=== PATIENT | female | born 1935 | race Caucasian/White ===

== ENCOUNTER 2019-08-25 07:23 | Inpatient (IN) ==
[2019-08-25] MEDS ORDERED: Albuterol 2.5 MG/3 ML NEBULIZER IH ONE (07:39)
[2019-08-25 07:51] LABS: Basophils % 0.2 %; Eosinophils # 0.1 K/mcL (0.0-0.6); Eosinophils % 0.5 %; Hematocrit 31.7 % (35.3-44.9); Immature Granulocytes % 0.5 % (0-4); Lymphocytes # 0.8 K/mcL (0.6-4.6); Lymphocytes % 5.7 %; Mean Corpuscular HGB Conc 31.5 g/dL (31.6-35.5); Mean Corpuscular Hemoglobin 24.4 pg (28.0-33.3); Mean Corpuscular Volume 77.3 fL (83.0-100.0); Mean Platelet Volume 9.2 fL (9.4-12.4); Monocytes # 0.8 K/mcL (0.0-1.3); Neutrophils # 11.4 K/mcL (1.6-8.9); Platelet Count 318 K/mcL (140-400); Red Cell Distribution Width 14.9 % (11.5-14.5); Segmented Neutrophils % 87.1 %; White Blood Count 13.1 K/mcL (4.3-11.1)
[2019-08-25 07:59] LABS: INR 1.1; Prothrombin Time 12.3 Seconds (9.4-12.1)
[2019-08-25] MEDS ORDERED: Isovue-370 500 ML BOTTLE IVP ONE (08:00)
[2019-08-25 08:11] LABS: Troponin I < 0.03 ng/mL (< 0.04)
[2019-08-25 08:12] LABS: Alanine Aminotransferase 12 Units/L (7-52); Albumin 3.7 g/dL (3.5-5.7); Albumin/Globulin Ratio 1.8 (1.1-2.2); Alkaline Phosphatase 46 Units/L (34-104); Aspartate Amino Transferase 17 Units/L (13-39); BUN/Creatinine Ratio 11 (6-26); Bilirubin,Direct 0.1 mg/dL (0.0-0.2); Bilirubin,Indirect 0.5 mg/dL (0.0-1.0); Bilirubin,Total 0.6 mg/dL (0.3-1.0); Blood Urea Nitrogen 17 mg/dL (8-23); Calcium 8.8 mg/dL (8.6-10.3); Carbon Dioxide 25 mEq/L (23-29); Chloride 92 mEq/L (98-107); Globulin 2.1 g/dL (2.4-3.5); Glucose 125 mg/dL (70-105); Osmolality,Calculated 269 (280-300); Potassium 3.7 mEq/L (3.5-5.1); Sodium 128 mEq/L (136-145); Total Protein 5.8 g/dL (6.4-8.9); eGFR For African Americans 39 (> 60); eGFR For Non-African Americans 32 (> 60)
[2019-08-25 08:25] LABS: ABG Base Excess 2 mEq/L (-2 to 3); ABG HCO3 25 mEq/L (21-27); ABG Oxygen Saturation 91 % (95-98); ABG PCO2 36 mmHg (35-45); ABG PH 7.45 pH Units (7.32-7.45); ABG PO2 58 mmHg (85-104); ABG TCO2 26 mEq/L (20-26)
[2019-08-25] MEDS ORDERED: levoFLOXacin 500 MG/100 ML 500 MG/100 ML BAG IVPB ONE (09:08)
[2019-08-25] MEDS ORDERED: Ondansetron 4 MG/2 ML VIAL IVP ONE (10:38)
[2019-08-25] MEDS ORDERED: Acetaminophen 325 MG TABLET PO PRN (12:55)
[2019-08-25] MEDS ORDERED: Naloxone 0.4 MG/ML INJ IVP PRN (12:55)
[2019-08-25] MEDS ORDERED: Mag Hydrox/Al Hydrox/Simeth 30 ML UDC PO PRN (12:55)
[2019-08-25] MEDS ORDERED: Ondansetron ODT 4 MG TAB.RAPDIS SL PRN (12:55)
[2019-08-25] MEDS ORDERED: Ondansetron 4 MG/2 ML VIAL IVP PRN (12:55)
[2019-08-25] MEDS ORDERED: MOM Conc 10 ML UD.LIQ PO PRN (12:55)
[2019-08-25] MEDS ORDERED: 0.9 % Sodium Chloride 1,000 ML IVC SCH (13:00)
[2019-08-25] MEDS ORDERED: GuaiFENesin Liq 200 MG/10 ML UDC PO PRN (13:23)
[2019-08-25] MEDS ORDERED: *HR* Acetaminophen w/Cod 300-30 mg 1 TAB TABLET PO PRN (13:23)
[2019-08-25] MEDS: 0.9 % Sodium Chloride 1,000 ML IVC SCH (14:07)
[2019-08-25] MEDS: Cholecalciferol (D-3) 1,000 UNIT (25MCG) TABLET PO SCH (14:08)
[2019-08-25] MEDS: Divalproex Sodium 125 MG CAPSULE PO SCH ×3 (15:59→21:00)
[2019-08-25] MEDS: Piperacillin/Tazobactam 3.375 GM in 0.9 % Sodium Chloride Mini Bag 100 ML IVPB SCH ×2 (16:08→23:25)
[2019-08-25] MEDS ORDERED: haloperidoL 1 MG TABLET PO PRN (16:35)
[2019-08-25] MEDS: Ipratropium/Albuterol Neb 3 ML IH SCH ×2 (16:50→21:32)
[2019-08-25] MEDS: Melatonin 3 MG TABLET PO SCH (20:53)
[2019-08-25] MEDS: Sucralfate 1 GM TABLET PO SCH (20:54)
[2019-08-26] MEDS: 0.9 % Sodium Chloride 1,000 ML IVC SCH (04:09)
[2019-08-26] MEDS: Ipratropium/Albuterol Neb 3 ML IH SCH ×4 (04:10→23:09)
[2019-08-26] MEDS: *HR* Enoxaparin 30 MG/0.3 ML SYRINGE SQ SCH (04:10)
[2019-08-26 06:31] LABS: Albumin 3.1 g/dL (3.5-5.7); Albumin/Globulin Ratio 1.7 (1.1-2.2); Bilirubin,Total 0.4 mg/dL (0.3-1.0); Calcium 8.2 mg/dL (8.6-10.3); Globulin 1.8 g/dL (2.4-3.5); Magnesium 1.9 mg/dL (1.6-2.6); Phosphorous 3.8 mg/dL (2.7-4.5); Potassium 3.8 mEq/L (3.5-5.1); Total Protein 4.9 g/dL (6.4-8.9)
[2019-08-26 07:03] LABS: Thyroid Stimulating Hormone 1.916 mcIU/mL (0.340-5.600)
[2019-08-26 07:28] LABS: Hematocrit 26.3 % (35.3-44.9); Mean Corpuscular HGB Conc 31.2 g/dL (31.6-35.5); Mean Corpuscular Hemoglobin 24.3 pg (28.0-33.3); Mean Corpuscular Volume 77.8 fL (83.0-100.0); Mean Platelet Volume 9.3 fL (9.4-12.4); Platelet Count 198 K/mcL (140-400); Red Blood Count 3.38 M/mcL (3.82-4.97); White Blood Count 12.3 K/mcL (4.3-11.1)
[2019-08-26 07:36] LABS: Hemoglobin 8.2 g/dL (11.5-15.4)
[2019-08-26] MEDS: Piperacillin/Tazobactam 3.375 GM in 0.9 % Sodium Chloride Mini Bag 100 ML IVPB SCH ×2 (09:24→16:35)
[2019-08-26] MEDS: Iron Polysaccharide Complex 150 MG CAPSULE PO SCH (09:25)
[2019-08-26] MEDS: Sucralfate 1 GM TABLET PO SCH ×2 (09:25→22:12)
[2019-08-26] MEDS: Aspirin Enteric Coated 81 MG Tablet PO SCH (09:25)
[2019-08-26] MEDS: Mirtazapine 15 MG TABLET PO SCH (09:25)
[2019-08-26] MEDS: Loratadine 10 MG TABLET PO SCH (09:26)
[2019-08-26] MEDS: amLODIPine 5 MG TABLET PO SCH (09:26)
[2019-08-26] MEDS: Divalproex Sodium 125 MG CAPSULE PO SCH ×4 (09:29→22:12)
[2019-08-26] MEDS: Cholecalciferol (D-3) 1,000 UNIT (25MCG) TABLET PO SCH (09:29)
[2019-08-26 10:07] LABS: Adenovirus Not Detected (Not Detect); Coronavirus 229E Not Detected (Not Detect); Coronavirus HKU1 Not Detected (Not Detect); Coronavirus NL63 Not Detected (Not Detect); Coronavirus OC43 Not Detected (Not Detect); Human Metapneumovirus Not Detected (Not Detect); Human Rhinovirus/Enterovirus Not Detected (Not Detect); Influenza A Subtype 2009 H1 Not Detected (Not Detect)
[2019-08-26 10:08] LABS: Bordetella Pertussis Not Detected (Not Detect); Chlamydophila pneumoniae Not Detected (Not Detect); Influenza B Not Detected (Not Detect); Mycoplasma pneumoniae Not Detected (Not Detect); Parainfluenza Virus 1 Not Detected (Not Detect); Parainfluenza Virus 2 Not Detected (Not Detect); Parainfluenza Virus 3 Not Detected (Not Detect); Parainfluenza Virus 4 Not Detected (Not Detect); Respiratory Syncytial Virus Not Detected (Not Detect)
[2019-08-26] MEDS: Ascorbic Acid 500 MG TABLET PO SCH (16:35)
[2019-08-26] MEDS: haloperidoL 1 MG TABLET PO PRN (22:13)
[2019-08-26] MEDS: Melatonin 3 MG TABLET PO SCH (22:13)
[2019-08-27] MEDS: Piperacillin/Tazobactam 3.375 GM in 0.9 % Sodium Chloride Mini Bag 100 ML IVPB SCH ×3 (00:10→16:31)
[2019-08-27] MEDS: Ipratropium/Albuterol Neb 3 ML IH SCH ×4 (04:10→22:28)
[2019-08-27 05:15] LABS: Hematocrit 24.8 % (35.3-44.9); Hemoglobin 7.7 g/dL (11.5-15.4); Mean Corpuscular Hemoglobin 24.2 pg (28.0-33.3); Mean Platelet Volume 9.2 fL (9.4-12.4); Platelet Count 211 K/mcL (140-400); Red Blood Count 3.18 M/mcL (3.82-4.97); White Blood Count 10.2 K/mcL (4.3-11.1)
[2019-08-27 05:35] LABS: BUN/Creatinine Ratio 17 (6-26); Blood Urea Nitrogen 17 mg/dL (8-23); Calcium 8.5 mg/dL (8.6-10.3); Carbon Dioxide 25 mEq/L (23-29); Chloride 101 mEq/L (98-107); Glucose 135 mg/dL (70-105); Magnesium 2.1 mg/dL (1.6-2.6); Osmolality,Calculated 284 (280-300); Potassium 3.8 mEq/L (3.5-5.1); Sodium 135 mEq/L (136-145); eGFR For African Americans > 60 (> 60); eGFR For Non-African Americans 51 (> 60)
[2019-08-27] MEDS: *HR* Enoxaparin 30 MG/0.3 ML SYRINGE SQ SCH (06:25)
[2019-08-27] MEDS: Divalproex Sodium 125 MG CAPSULE PO SCH ×4 (08:16→22:06)
[2019-08-27] MEDS: amLODIPine 5 MG TABLET PO SCH (08:16)
[2019-08-27] MEDS: Aspirin Enteric Coated 81 MG Tablet PO SCH (08:16)
[2019-08-27] MEDS: Sucralfate 1 GM TABLET PO SCH ×2 (08:16→22:06)
[2019-08-27] MEDS: Ascorbic Acid 500 MG TABLET PO SCH ×2 (08:16→16:31)
[2019-08-27] MEDS: Cholecalciferol (D-3) 1,000 UNIT (25MCG) TABLET PO SCH (08:16)
[2019-08-27] MEDS: Mirtazapine 15 MG TABLET PO SCH (08:16)
[2019-08-27] MEDS: Iron Polysaccharide Complex 150 MG CAPSULE PO SCH (08:16)
[2019-08-27 08:35] LABS: % Iron Saturation 3 % (15-50); Iron 11 mcg/dL (50-170); Transferrin 260 mg/dL (203-362)
[2019-08-27 08:47] LABS: Estimated Average Glucose 146 mg/dl
[2019-08-27 08:56] LABS: Prealbumin 12.8 mg/dL (17.0-34.0)
[2019-08-27 09:20] LABS: Folate 6.9 ng/mL (3.0-16.0)
[2019-08-27] MEDS: Loratadine 10 MG TABLET PO SCH (10:13)
[2019-08-27] MEDS: haloperidoL 1 MG TABLET PO PRN ×2 (10:13→22:06)
[2019-08-27] MEDS: Melatonin 3 MG TABLET PO SCH (22:06)
[2019-08-28] MEDS: Piperacillin/Tazobactam 3.375 GM in 0.9 % Sodium Chloride Mini Bag 100 ML IVPB SCH ×4 (00:32→23:24)
[2019-08-28] MEDS: Ipratropium/Albuterol Neb 3 ML IH SCH ×4 (04:45→22:51)
[2019-08-28 06:08] LABS: Hematocrit 25.8 % (35.3-44.9); Mean Corpuscular Hemoglobin 24.3 pg (28.0-33.3); Mean Corpuscular Volume 78.4 fL (83.0-100.0); Mean Platelet Volume 9.4 fL (9.4-12.4); Platelet Count 226 K/mcL (140-400); Red Blood Count 3.29 M/mcL (3.82-4.97); Red Cell Distribution Width 15.2 % (11.5-14.5); White Blood Count 6.6 K/mcL (4.3-11.1)
[2019-08-28] MEDS: *HR* Enoxaparin 30 MG/0.3 ML SYRINGE SQ SCH (06:13)
[2019-08-28 06:25] LABS: Calcium 8.7 mg/dL (8.6-10.3); Magnesium 2.1 mg/dL (1.6-2.6); Potassium 3.7 mEq/L (3.5-5.1)
[2019-08-28] MEDS: Aspirin Enteric Coated 81 MG Tablet PO SCH (08:32)
[2019-08-28] MEDS: Cholecalciferol (D-3) 1,000 UNIT (25MCG) TABLET PO SCH (08:32)
[2019-08-28] MEDS: Divalproex Sodium 125 MG CAPSULE PO SCH ×4 (08:32→21:07)
[2019-08-28] MEDS: Ascorbic Acid 500 MG TABLET PO SCH ×2 (08:33→17:10)
[2019-08-28] MEDS: amLODIPine 5 MG TABLET PO SCH (08:33)
[2019-08-28] MEDS: Sucralfate 1 GM TABLET PO SCH ×2 (08:33→21:07)
[2019-08-28] MEDS: Iron Polysaccharide Complex 150 MG CAPSULE PO SCH (08:33)
[2019-08-28] MEDS: Mirtazapine 15 MG TABLET PO SCH (08:34)
[2019-08-28] MEDS: Loratadine 10 MG TABLET PO SCH (08:37)
[2019-08-28] MEDS ORDERED: Furosemide 20 MG TABLET PO PRN (09:37)
[2019-08-28] MEDS: Iron Sucrose Complex 200 MG in 0.9 % Sodium Chloride 100 ML IVPB SCH (10:56)
[2019-08-28] MEDS: Furosemide 20 MG TABLET PO SCH (13:37)
[2019-08-28] MEDS: Melatonin 3 MG TABLET PO SCH (21:07)
[2019-08-28] MEDS: haloperidoL 1 MG TABLET PO PRN (23:53)
[2019-08-29 05:11] LABS: Hematocrit 28.2 % (35.3-44.9); Hemoglobin 8.7 g/dL (11.5-15.4); Mean Corpuscular HGB Conc 30.9 g/dL (31.6-35.5); Mean Corpuscular Hemoglobin 23.9 pg (28.0-33.3); Mean Corpuscular Volume 77.5 fL (83.0-100.0); Mean Platelet Volume 8.8 fL (9.4-12.4); Platelet Count 256 K/mcL (140-400); Red Blood Count 3.64 M/mcL (3.82-4.97); White Blood Count 7.4 K/mcL (4.3-11.1)
[2019-08-29] MEDS: Ipratropium/Albuterol Neb 3 ML IH SCH ×2 (05:29→09:07)
[2019-08-29 05:31] LABS: BUN/Creatinine Ratio 14 (6-26); Blood Urea Nitrogen 12 mg/dL (8-23); Calcium 8.9 mg/dL (8.6-10.3); Carbon Dioxide 23 mEq/L (23-29); Chloride 102 mEq/L (98-107); Glucose 127 mg/dL (70-105); Magnesium 1.9 mg/dL (1.6-2.6); Osmolality,Calculated 283 (280-300); Potassium 3.3 mEq/L (3.5-5.1); Sodium 136 mEq/L (136-145); eGFR For African Americans > 60 (> 60); eGFR For Non-African Americans > 60 (> 60)
[2019-08-29] MEDS ORDERED: *HR* Enoxaparin 40 MG/0.4 ML SYRINGE SQ SCH (06:00)
[2019-08-29] MEDS: Aspirin Enteric Coated 81 MG Tablet PO SCH (08:03)
[2019-08-29] MEDS: Iron Polysaccharide Complex 150 MG CAPSULE PO SCH (08:03)
[2019-08-29] MEDS: Cholecalciferol (D-3) 1,000 UNIT (25MCG) TABLET PO SCH (08:03)
[2019-08-29] MEDS: Loratadine 10 MG TABLET PO SCH (08:03)
[2019-08-29] MEDS: Furosemide 20 MG TABLET PO SCH (08:03)
[2019-08-29] MEDS: amLODIPine 5 MG TABLET PO SCH (08:04)
[2019-08-29] MEDS: Ascorbic Acid 500 MG TABLET PO SCH (08:04)
[2019-08-29] MEDS: Divalproex Sodium 125 MG CAPSULE PO SCH (08:04)
[2019-08-29] MEDS: Sucralfate 1 GM TABLET PO SCH (08:04)
[2019-08-29] MEDS: Mirtazapine 15 MG TABLET PO SCH ×2 (08:06→10:36)
[2019-08-29] MEDS: Iron Sucrose Complex 200 MG in 0.9 % Sodium Chloride 100 ML IVPB SCH (08:16)
[2019-08-29] MEDS: Piperacillin/Tazobactam 3.375 GM in 0.9 % Sodium Chloride Mini Bag 100 ML IVPB SCH (09:21)
[2019-08-29 11:10] VITALS: BP 177/67
== END 2019-08-29 12:05 | disposition home or self-care (01) | DRG 194 ==
LOC: EMEROOGRE 07:23 → INPGRE 07:23
PROVIDERS: ADMIT Family Medicine; ATTEND Family Medicine

== ENCOUNTER 2020-03-06 14:48 | Observation (INO) ==
[2020-03-06 16:25] LABS: Basophils % 0.3 %; Eosinophils # 0.1 K/mcL (0.0-0.6); Hematocrit 33.2 % (35.3-44.9); Hemoglobin 11.2 g/dL (11.5-15.4); Immature Granulocytes % 0.3 % (0-4); Lymphocytes # 0.7 K/mcL (0.6-4.6); Mean Corpuscular HGB Conc 33.7 g/dL (31.6-35.5); Mean Corpuscular Hemoglobin 28.3 pg (28.0-33.3); Mean Corpuscular Volume 83.8 fL (83.0-100.0); Mean Platelet Volume 9.6 fL (9.4-12.4); Monocytes # 0.5 K/mcL (0.0-1.3); Monocytes % 7.8 %; Neutrophils # 5.2 K/mcL (1.6-8.9); Platelet Count 182 K/mcL (140-400); Red Blood Count 3.96 M/mcL (3.82-4.97); Red Cell Distribution Width 15.2 % (11.5-14.5); Segmented Neutrophils % 79.6 %; White Blood Count 6.5 K/mcL (4.3-11.1)
[2020-03-06 16:33] LABS: INR 1.2; Prothrombin Time 13.7 Seconds (9.4-12.1)
[2020-03-06 16:36] LABS: Activated Partial Thrombo Time 26.7 Seconds (26.0-36.0)
[2020-03-06 16:44] LABS: Albumin 3.5 g/dL (3.5-5.7); Albumin/Globulin Ratio 1.3 (1.1-2.2); Bilirubin,Total 0.6 mg/dL (0.3-1.0); Calcium 8.5 mg/dL (8.6-10.3); Globulin 2.6 g/dL (2.4-3.5); Magnesium 1.8 mg/dL (1.6-2.6); Phosphorous 2.3 mg/dL (2.7-4.5); Potassium 3.3 mEq/L (3.5-5.1); Total Protein 6.1 g/dL (6.4-8.9); Troponin I 0.03 ng/mL (< 0.04)
[2020-03-06] MEDS ORDERED: 0.9 % Sodium Chloride 1,000 ML IVC SCH ×2 (17:45→19:52)
[2020-03-06 18:42] LABS: Bilirubin,Urine Negative (Negative); Blood,Urine Small (Negative); Clarity,Urine Slightly Cloudy (Clear); Glucose,Urine (UA) Normal (Normal); Ketones,Urine Negative (Negative); Leukocyte Esterase,Urine Moderate (Negative); Nitrite,Urine Negative (Negative); PH,Urine 6.5 pH Units (5.0-8.0); Protein,Urine 30 mg/dL (Neg-Trace); Specific Gravity,Urine 1.015 (1.010-1.025); Urobilinogen,Urine Normal (Normal)
[2020-03-06 18:44] LABS: Color,Urine Yellow (Yellow)
[2020-03-06 18:46] LABS: Squamous Epithelial Cell,Urine Few per hpf (None-Few)
[2020-03-06 18:47] LABS: Amorphous Sediment,Urine Few per hpf (None-Few); Bacteria,Urine Few per hpf (None-Few); Hyaline Casts,Urine Few per lpf (None Seen)
[2020-03-06] MEDS ORDERED: QUEtiapine Fumarate 25 MG TABLET PO STA (19:16)
[2020-03-06] MEDS ORDERED: Divalproex Sodium 125 MG Sprinkle Capsule (DR) PO STA (19:24)
[2020-03-06] MEDS ORDERED: Naloxone 0.4 MG/ML INJ IVP PRN (19:52)
[2020-03-06] MEDS: Divalproex Sodium 125 MG Sprinkle Capsule (DR) PO SCH (22:29)
[2020-03-06] MEDS: QUEtiapine Fumarate 25 MG TABLET PO SCH (22:30)
[2020-03-06] MEDS: Melatonin 3 MG TABLET PO SCH (22:37)
[2020-03-06] MEDS: 0.9 % Sodium Chloride 1,000 ML IVC SCH (22:37)
[2020-03-06] MEDS: cephALEXin 500 MG CAPSULE PO SCH (22:37)
[2020-03-07] MEDS: 0.9 % Sodium Chloride 1,000 ML IVC SCH (05:07)
[2020-03-07 08:06] LABS: Basophils % 0.2 %; Eosinophils # 0.2 K/mcL (0.0-0.6); Eosinophils % 2.9 %; Hematocrit 29.2 % (35.3-44.9); Immature Granulocytes % 0.6 % (0-4); Lymphocytes # 0.5 K/mcL (0.6-4.6); Mean Corpuscular HGB Conc 34.2 g/dL (31.6-35.5); Mean Corpuscular Hemoglobin 28.4 pg (28.0-33.3); Mean Platelet Volume 9.5 fL (9.4-12.4); Monocytes # 0.5 K/mcL (0.0-1.3); Monocytes % 10.2 %; Neutrophils # 3.9 K/mcL (1.6-8.9); Platelet Count 164 K/mcL (140-400); Red Blood Count 3.52 M/mcL (3.82-4.97); Red Cell Distribution Width 15.3 % (11.5-14.5); Segmented Neutrophils % 77.1 %; White Blood Count 5.1 K/mcL (4.3-11.1)
[2020-03-07 08:20] LABS: Calcium 7.8 mg/dL (8.6-10.3); Magnesium 1.8 mg/dL (1.6-2.6); Phosphorous 2.7 mg/dL (2.7-4.5); Potassium 2.9 mEq/L (3.5-5.1)
[2020-03-07] MEDS: Aspirin Enteric Coated 81 MG Tablet PO SCH (08:29)
[2020-03-07] MEDS: QUEtiapine Fumarate 25 MG TABLET PO SCH ×2 (08:29→20:14)
[2020-03-07] MEDS: Mirtazapine 15 MG TABLET PO SCH (08:29)
[2020-03-07] MEDS: Divalproex Sodium 125 MG Sprinkle Capsule (DR) PO SCH ×4 (08:29→20:13)
[2020-03-07] MEDS: cephALEXin 500 MG CAPSULE PO SCH ×2 (08:29→20:14)
[2020-03-07] MEDS ORDERED: Furosemide 40 MG TABLET PO SCH (09:00)
[2020-03-07] MEDS: (Iron Polysaccharide Complex [Pro Fe] 180 MG) PO SCH (10:49)
[2020-03-07] MEDS: DOXEPIN PO SCH (10:49)
[2020-03-07] MEDS: Melatonin 3 MG TABLET PO SCH (20:14)
[2020-03-08 06:18] LABS: Basophils % 0.2 %; Eosinophils # 0.2 K/mcL (0.0-0.6); Eosinophils % 4.9 %; Hematocrit 31.1 % (35.3-44.9); Hemoglobin 10.3 g/dL (11.5-15.4); Immature Granulocytes % 0.9 % (0-4); Lymphocytes # 0.5 K/mcL (0.6-4.6); Mean Corpuscular HGB Conc 33.1 g/dL (31.6-35.5); Mean Corpuscular Hemoglobin 28.2 pg (28.0-33.3); Mean Corpuscular Volume 85.2 fL (83.0-100.0); Mean Platelet Volume 9.8 fL (9.4-12.4); Monocytes # 0.3 K/mcL (0.0-1.3); Monocytes % 6.5 %; Neutrophils # 3.5 K/mcL (1.6-8.9); Platelet Count 170 K/mcL (140-400); Red Blood Count 3.65 M/mcL (3.82-4.97); Red Cell Distribution Width 15.6 % (11.5-14.5); Segmented Neutrophils % 77.5 %; White Blood Count 4.5 K/mcL (4.3-11.1)
[2020-03-08 07:21] LABS: Calcium 8.2 mg/dL (8.6-10.3); Potassium 3.8 mEq/L (3.5-5.1)
[2020-03-08] MEDS: Aspirin Enteric Coated 81 MG Tablet PO SCH (09:29)
[2020-03-08] MEDS: Divalproex Sodium 125 MG Sprinkle Capsule (DR) PO SCH ×4 (09:29→21:05)
[2020-03-08] MEDS: QUEtiapine Fumarate 25 MG TABLET PO SCH ×2 (09:30→21:05)
[2020-03-08] MEDS: cephALEXin 500 MG CAPSULE PO SCH ×2 (09:30→21:05)
[2020-03-08] MEDS: Mirtazapine 15 MG TABLET PO SCH (09:30)
[2020-03-08] MEDS: (Iron Polysaccharide Complex [Pro Fe] 180 MG) PO SCH (09:31)
[2020-03-08] MEDS: DOXEPIN PO SCH (09:31)
[2020-03-08] MEDS: Melatonin 3 MG TABLET PO SCH (21:05)
[2020-03-09] MEDS: Aspirin Enteric Coated 81 MG Tablet PO SCH (08:38)
[2020-03-09] MEDS: cephALEXin 500 MG CAPSULE PO SCH (08:38)
[2020-03-09] MEDS: Mirtazapine 15 MG TABLET PO SCH (08:38)
[2020-03-09] MEDS: QUEtiapine Fumarate 25 MG TABLET PO SCH (08:39)
[2020-03-09] MEDS: Divalproex Sodium 125 MG Sprinkle Capsule (DR) PO SCH ×2 (08:39→12:22)
[2020-03-09] MEDS: (Iron Polysaccharide Complex [Pro Fe] 180 MG) PO SCH (08:42)
[2020-03-09] MEDS: DOXEPIN PO SCH (08:42)
[2020-03-09 12:57] VITALS: BP 93/59
== END 2020-03-09 14:37 | disposition home or self-care (01) ==
LOC: INPGRE 14:48 → EMEROOGRE 14:48 → INPGRE 20:00
PROVIDERS: ADMIT Family Medicine; ATTEND Family Medicine